=== PATIENT | female | born 2000 | race Two or more races ===

== ENCOUNTER 2024-04-18 10:48 | Emergency (ER) | payer OTHER ==
[~2024-04-18] VITALS: Ht 165.1 cm; Wt 65.9 kg
[2024-04-18 11:03] VITALS: TEMP 98.4
[2024-04-18 11:54] VITALS: BP 120/68; PULSE 70; RESP 16
== END 2024-04-18 11:55 | disposition home or self-care (01) ==
LOC: EMS 10:48
DX: B08.1 Molluscum contagiosum (principal)
CPT/HCPCS: 99281; Z7502